=== PATIENT | female | born 1950 | race Hispanic/Latino ===

== ENCOUNTER 2016-08-01 15:45 | Inpatient (IN) | payer OTHER ==
[~2016-08-01] VITALS: Ht 165.1 cm; Wt 136.1 kg
[2016-08-01 15:54] VITALS: BP 147/55
[2016-08-01 16:24] LABS: PLATELET COUNT 313 K/uL (152-353)
[2016-08-01 16:30] LABS: POTASSIUM 4.5 mmol/L (3.6-5.2); SODIUM 134 mmol/L (136-145)
[2016-08-01 16:54] VITALS: BP 158/83
[2016-08-01 17:15] VITALS: BP 160/86; TEMP 98
[2016-08-01 18:00] VITALS: BP 156/83
[2016-08-01 20:00] VITALS: BP 143/96; TEMP 98.3
[2016-08-01 23:18] VITALS: BP 143/96; TEMP 98.3; Ht 165.1 cm; Wt 136.1 kg
[2016-08-02 00:09] VITALS: BP 142/62; TEMP 98
[2016-08-02] MEDS ORDERED: AMLO2.5T PO (01:17)
[2016-08-02] MEDS ORDERED: ASA LOW DOSE81 MG OR (01:18)
[2016-08-02] MEDS ORDERED: LIPITOR40 MG PO (01:20)
[2016-08-02] MEDS ORDERED: DOCU100C10 PO (01:21)
[2016-08-02] MEDS ORDERED: DONE5TAB PO (01:22)
[2016-08-02] MEDS ORDERED: DULO60CA2 OR (01:23)
[2016-08-02] MEDS ORDERED: INSUINJP SC (01:25)
[2016-08-02] MEDS ORDERED: TEMA15CA19 PO (01:26)
[2016-08-02] MEDS ORDERED: ONDA4TAB3 PO (01:27)
[2016-08-02] MEDS ORDERED: LEVO0.117 PO (01:29)
[2016-08-02] MEDS ORDERED: METO25TA2 (01:31)
[2016-08-02] MEDS ORDERED: POLY3350 PO (01:32)
[2016-08-02] MEDS ORDERED: METF500T PO (01:33)
[2016-08-02] MEDS ORDERED: PANT40TA PO (01:33)
[2016-08-02] MEDS ORDERED: OLAN2.5T2 PO (01:34)
[2016-08-02] MEDS ORDERED: COZAAR100 MG PO (01:35)
[2016-08-02 04:00] VITALS: BP 152/59; TEMP 98.3
[2016-08-02 08:20] VITALS: BP 156/74; TEMP 98.5
[2016-08-02 09:30] LABS: POTASSIUM 4.8 mmol/L (3.6-5.2)
[2016-08-02 09:35] LABS: PLATELET COUNT 324 K/uL (152-353)
[2016-08-02 11:44] VITALS: BP 149/62; TEMP 98.5
[2016-08-02 16:13] VITALS: BP 152/58; TEMP 98.3
[2016-08-02 20:00] VITALS: BP 135/64; TEMP 97.7
[2016-08-03 00:15] VITALS: BP 144/64; TEMP 98
[2016-08-03 04:16] VITALS: BP 154/84; TEMP 98
[2016-08-03 05:41] LABS: POTASSIUM 4.7 mmol/L (3.6-5.2)
[2016-08-03 06:51] LABS: PLATELET COUNT 317 K/uL (152-353)
[2016-08-03 08:00] VITALS: BP 187/81; TEMP 98
[2016-08-03 12:00] VITALS: BP 196/91; TEMP 97.9
[2016-08-03 16:00] VITALS: BP 153/78; TEMP 98.7
[2016-08-03 20:22] VITALS: BP 138/90; TEMP 97.9
[2016-08-04 00:01] VITALS: BP 152/70; TEMP 98
[2016-08-04 04:31] LABS: PLATELET COUNT 309 K/uL (152-353)
[2016-08-04 04:41] LABS: POTASSIUM 4.5 mmol/L (3.6-5.2)
[2016-08-04 08:00] VITALS: BP 159/76; TEMP 97.9
[2016-08-04 12:00] VITALS: BP 158/73; TEMP 98.2
[2016-08-04 16:00] VITALS: BP 147/78; TEMP 98.1
[2016-08-04 18:55] VITALS: BP 147/65; TEMP 98.8
[2016-08-05] VITALS: BP 175/83; TEMP 98.3
[2016-08-05 04:00] VITALS: BP 168/79; TEMP 98.3
[2016-08-05 04:32] LABS: PLATELET COUNT 314 K/uL (152-353)
[2016-08-05 04:54] LABS: POTASSIUM 4.4 mmol/L (3.6-5.2)
[2016-08-05 08:00] VITALS: BP 144/81; TEMP 98.3
[2016-08-05 11:30] VITALS: BP 190/76; TEMP 98.2
[2016-08-05 16:00] VITALS: BP 177/79; TEMP 97.7
[2016-08-05 20:23] VITALS: BP 158/65; TEMP 97.6
[2016-08-06 00:27] VITALS: BP 173/66; TEMP 98.4
[2016-08-06 04:00] VITALS: BP 163/67; TEMP 97.9
[2016-08-06 06:18] LABS: PLATELET COUNT 286 K/uL (152-353)
[2016-08-06 08:00] VITALS: BP 192/70; TEMP 98.3
[2016-08-06 12:00] VITALS: BP 174/67; TEMP 98.4
[2016-08-06 15:53] VITALS: BP 154/69; TEMP 98.3
[2016-08-06 21:09] VITALS: BP 151/81; TEMP 98.6
[2016-08-07 00:28] VITALS: BP 154/73; TEMP 98.1
[2016-08-07 04:00] VITALS: BP 174/77; TEMP 98.5
[2016-08-07 07:53] VITALS: BP 181/77; TEMP 98.1
== END 2016-08-07 10:23 | DRG 291 ==
LOC: ED 15:45 → MED/SURG 17:25
PROVIDERS: Internal Medicine; ADMIT Emergency Medicine
DX: I13.0 Hypertensive heart and chronic kidney disease with heart failure and stage 1 through stage 4 chronic kidney disease, or unspecified chronic kidney disease (principal); I50.23 Acute on chronic systolic (congestive) heart failure; N17.8 Other acute kidney failure; N18.4 Chronic kidney disease, stage 4 (severe); I48.91 Unspecified atrial fibrillation; E11.9 Type 2 diabetes mellitus without complications; Z79.4 Long term (current) use of insulin; D72.828 Other elevated white blood cell count; E66.01 Morbid (severe) obesity due to excess calories; R06.01 Orthopnea; I10 Essential (primary) hypertension; E83.41 Hypermagnesemia; R41.0 Disorientation, unspecified; L13.8 Other specified bullous disorders; D64.89 Other specified anemias; R60.0 Localized edema
CPT/HCPCS: 36415; 80053; 81000; 82550; 82948; 83735; 83880; 84443; 84484; 85027; 85610; 87070; 87077; 87088; 87185; 87186; 87205; 93005; 94760; 96372; 96374; 99284; J0360; J1630; J1940; J2060

== ENCOUNTER 2016-08-20 14:35 | Outpatient (CLI) | payer OTHER ==
[~2016-08-20 14:35] MED LIST: AMLO2.5T PO; ASA LOW DOSE81 MG OR; COZAAR100 MG PO; DOCU100C10 PO; DONE5TAB PO; DULO60CA2 OR; INSUINJP SC; LEVO0.117 PO; LIPITOR40 MG PO; METF500T PO; METO25TA2; OLAN2.5T2 PO; ONDA4TAB3 PO; PANT40TA PO; POLY3350 PO; TEMA15CA19 PO
[2016-08-20] MEDS ORDERED: FURO40TA93 PO (15:01)
== END 2016-08-20 14:37 | disposition short-term general hospital (02) ==
LOC: AMB 14:35
DX: R06.09 Other forms of dyspnea (principal); I50.9 Heart failure, unspecified; R60.0 Localized edema
CPT/HCPCS: A0425; A0427

== ENCOUNTER 2016-08-20 14:37 | Emergency (ER) | payer OTHER ==
[~2016-08-20] VITALS: Ht 160 cm; Wt 120.2 kg
[2016-08-20] MEDS ORDERED: FURO40TA93 PO (15:01)
[2016-08-20 15:51] LABS: PLATELET COUNT 346 K/uL (152-353)
[2016-08-20 16:01] LABS: POTASSIUM 3.4 mmol/L (3.6-5.2); SODIUM 139 mmol/L (136-145)
[2016-08-20 18:30] VITALS: BP 122/68; TEMP 98
== END 2016-08-20 18:35 | disposition home or self-care (01) ==
LOC: ED 14:37
PROVIDERS: Emergency Medicine
PROC: 0T9B70Z Drainage of Bladder with Drainage Device, Via Natural or Artificial Opening (ICD-10-PCS; principal; 2016-08-20)
DX: I50.9 Heart failure, unspecified (principal); M79.1 Myalgia; R60.9 Edema, unspecified; I48.91 Unspecified atrial fibrillation
CPT/HCPCS: 36415; 51702; 80053; 82150; 82550; 83880; 84484; 85027; 93005; 96374; 96375; 99284; J1940; J3490

== ENCOUNTER 2016-09-15 12:55 | Outpatient (CLI) | payer OTHER ==
[~2016-09-15 12:55] MED LIST changes: +FURO40TA93 PO
[2016-09-16] MEDS ORDERED: JANTOVEN7.5 MG OR (08:35)
[2016-09-16] MEDS ORDERED: COUMADIN6 MG PO (08:36)
[2016-09-16] MEDS ORDERED: FAMOTIDINE20 MG PO (08:37)
[2016-09-16] MEDS ORDERED: TENORETIC50 MG PO (08:38)
[2016-09-16] MEDS ORDERED: TRAM50TA PO (08:39)
[2016-09-16] MEDS ORDERED: LORA1TAB17 PO (08:40)
[2016-09-16] MEDS ORDERED: DOCU100C10 PO (08:41)
[2016-09-16] MEDS ORDERED: GLIM4TAB PO (08:42)
[2016-09-16] MEDS ORDERED: NOVOLOG100 MG/ML SC (08:44)
[2016-09-16] MEDS ORDERED: ALBUTEROL0.083 % IN (08:46)
== END 2016-09-15 12:59 | disposition short-term general hospital (02) ==
LOC: AMB 12:55
DX: M79.605 Pain in left leg (principal); M54.2 Cervicalgia; W01.0XXA Fall on same level from slipping, tripping and stumbling without subsequent striking against object, initial encounter; Y92.193 Bedroom in other specified residential institution as the place of occurrence of the external cause
CPT/HCPCS: A0425; A0429

== ENCOUNTER 2016-09-15 13:10 | Emergency (ER) | payer OTHER ==
[~2016-09-15] VITALS: Ht 160 cm; Wt 108.9 kg
[2016-09-15 13:14] VITALS: TEMP 98
[2016-09-15 17:15] VITALS: BP 124/60
[2016-09-16] MEDS ORDERED: JANTOVEN7.5 MG OR (08:35)
[2016-09-16] MEDS ORDERED: COUMADIN6 MG PO (08:36)
[2016-09-16] MEDS ORDERED: FAMOTIDINE20 MG PO (08:37)
[2016-09-16] MEDS ORDERED: TENORETIC50 MG PO (08:38)
[2016-09-16] MEDS ORDERED: TRAM50TA PO (08:39)
[2016-09-16] MEDS ORDERED: LORA1TAB17 PO (08:40)
[2016-09-16] MEDS ORDERED: DOCU100C10 PO (08:41)
[2016-09-16] MEDS ORDERED: GLIM4TAB PO (08:42)
[2016-09-16] MEDS ORDERED: NOVOLOG100 MG/ML SC (08:44)
[2016-09-16] MEDS ORDERED: ALBUTEROL0.083 % IN (08:46)
== END 2016-09-15 17:45 | disposition home or self-care (01) ==
LOC: ED 13:10
DX: S70.02XA Contusion of left hip, initial encounter (principal); S30.0XXA Contusion of lower back and pelvis, initial encounter; S30.1XXA Contusion of abdominal wall, initial encounter; M54.89 Other dorsalgia; R19.09 Other intra-abdominal and pelvic swelling, mass and lump; W05.0XXA Fall from non-moving wheelchair, initial encounter; Y92.098 Other place in other non-institutional residence as the place of occurrence of the external cause
CPT/HCPCS: 99283

== ENCOUNTER 2016-09-16 04:45 | Outpatient (CLI) | payer OTHER ==
[2016-09-16] MEDS ORDERED: JANTOVEN7.5 MG OR (08:35)
[2016-09-16] MEDS ORDERED: COUMADIN6 MG PO (08:36)
[2016-09-16] MEDS ORDERED: FAMOTIDINE20 MG PO (08:37)
[2016-09-16] MEDS ORDERED: TENORETIC50 MG PO (08:38)
[2016-09-16] MEDS ORDERED: TRAM50TA PO (08:39)
[2016-09-16] MEDS ORDERED: LORA1TAB17 PO (08:40)
[2016-09-16] MEDS ORDERED: DOCU100C10 PO (08:41)
[2016-09-16] MEDS ORDERED: GLIM4TAB PO (08:42)
[2016-09-16] MEDS ORDERED: NOVOLOG100 MG/ML SC (08:44)
[2016-09-16] MEDS ORDERED: ALBUTEROL0.083 % IN (08:46)
== END 2016-09-16 04:49 | disposition short-term general hospital (02) ==
LOC: AMB 04:45
DX: R52 Pain, unspecified (principal)
CPT/HCPCS: A0425; A0427

== ENCOUNTER 2016-09-16 04:49 | Inpatient (IN) | payer OTHER ==
[~2016-09-16] VITALS: Ht 167.6 cm; Wt 122.6 kg
[2016-09-16] VITALS (8 sets, daily range): BP systolic 124–178; BP diastolic 60–803; TEMP 97.6–99.1; Ht 167.6 cm; Wt 122.6 kg
[2016-09-16 06:41] LABS: POTASSIUM 2.9 mmol/L (3.6-5.2); SODIUM 134 mmol/L (136-145)
[2016-09-16 06:43] LABS: PLATELET COUNT 469 K/uL (152-353)
[2016-09-16] MEDS ORDERED: JANTOVEN7.5 MG OR (08:35)
[2016-09-16] MEDS ORDERED: COUMADIN6 MG PO (08:36)
[2016-09-16] MEDS ORDERED: FAMOTIDINE20 MG PO (08:37)
[2016-09-16] MEDS ORDERED: TENORETIC50 MG PO (08:38)
[2016-09-16] MEDS ORDERED: TRAM50TA PO (08:39)
[2016-09-16] MEDS ORDERED: LORA1TAB17 PO (08:40)
[2016-09-16] MEDS ORDERED: DOCU100C10 PO (08:41)
[2016-09-16] MEDS ORDERED: GLIM4TAB PO (08:42)
[2016-09-16] MEDS ORDERED: NOVOLOG100 MG/ML SC (08:44)
[2016-09-16] MEDS ORDERED: ALBUTEROL0.083 % IN (08:46)
[2016-09-16 16:51] LABS: POTASSIUM 3.3 mmol/L (3.6-5.2)
[2016-09-17 04:00] VITALS: BP 149/90; TEMP 98.9
[2016-09-17 08:00] VITALS: BP 140/91; TEMP 98
[2016-09-17 09:05] LABS: POTASSIUM 3.5 mmol/L (3.6-5.2)
[2016-09-17 10:10] LABS: PLATELET COUNT 434 K/uL (152-353)
[2016-09-17 12:00] VITALS: BP 138/88; TEMP 97.9
[2016-09-17 16:00] VITALS: BP 136/86; TEMP 97.6
[2016-09-17 20:00] VITALS: BP 147/92; TEMP 98
[2016-09-18] VITALS (17 sets, daily range): BP systolic 131–164; BP diastolic 78–103; TEMP 97.8–98.8
[2016-09-18 04:33] LABS: PLATELET COUNT 440 K/uL (152-353)
[2016-09-18 05:07] LABS: POTASSIUM 3.6 mmol/L (3.6-5.2)
[2016-09-19] VITALS (27 sets, daily range): BP systolic 118–165; BP diastolic 59–162; TEMP 98.9–100.8
[2016-09-19 06:44] LABS: PLATELET COUNT 414 K/uL (152-353)
[2016-09-19 06:56] LABS: POTASSIUM 3.8 mmol/L (3.6-5.2)
[2016-09-20] VITALS (19 sets, daily range): BP systolic 102–163; BP diastolic 61–98; TEMP 98.5–100.5
[2016-09-20 06:38] LABS: PLATELET COUNT 380 K/uL (152-353)
[2016-09-20 07:08] LABS: POTASSIUM 3.5 mmol/L (3.6-5.2)
[2016-09-20 19:09] LABS: PARTIAL THROMBOPLASTIN TIME 25.4 SECONDS (24.5-33.6)
[2016-09-21] VITALS (20 sets, daily range): BP systolic 110–146; BP diastolic 56–92; TEMP 97.6–101
[2016-09-21 06:07] LABS: POTASSIUM 3.2 mmol/L (3.6-5.2)
[2016-09-21 06:13] LABS: PARTIAL THROMBOPLASTIN TIME 27.2 SECONDS (24.5-33.6)
[2016-09-21 06:43] LABS: PLATELET COUNT 423 K/uL (152-353)
[2016-09-21 20:37] LABS: POTASSIUM 3.2 mmol/L (3.6-5.2)
[2016-09-22] VITALS (17 sets, daily range): BP systolic 40–155; BP diastolic 24–104; TEMP 98–106.5
[2016-09-22 06:33] LABS: POTASSIUM 3.6 mmol/L (3.6-5.2)
[2016-09-22 06:47] LABS: PLATELET COUNT 426 K/uL (152-353)
== END 2016-09-22 17:05 | disposition expired | DRG 853 ==
LOC: ED 04:49 → MED/SURG 07:50 → ED 07:50 → MED/SURG 08:55 → ICU 09-18 11:42
PROVIDERS: Emergency Medicine; Internal Medicine; Specialist; ADMIT Family Medicine
PROC: 30233N1 Transfusion of Nonautologous Red Blood Cells into Peripheral Vein, Percutaneous Approach (ICD-10-PCS; 2016-09-16)
PROC: 30233N1 Transfusion of Nonautologous Red Blood Cells into Peripheral Vein, Percutaneous Approach (ICD-10-PCS; 2016-09-19)
PROC: 0JBQ0ZZ Excision of Right Foot Subcutaneous Tissue and Fascia, Open Approach (ICD-10-PCS; principal; 2016-09-21)
PROC: 02HV33Z Insertion of Infusion Device into Superior Vena Cava, Percutaneous Approach (ICD-10-PCS; 2016-09-21)
DX: R65.20 Severe sepsis without septic shock (principal); L89.613 Pressure ulcer of right heel, stage 3; N39.0 Urinary tract infection, site not specified; N18.4 Chronic kidney disease, stage 4 (severe); J90 Pleural effusion, not elsewhere classified; D64.89 Other specified anemias; E87.6 Hypokalemia; E83.42 Hypomagnesemia; I12.9 Hypertensive chronic kidney disease with stage 1 through stage 4 chronic kidney disease, or unspecified chronic kidney disease; D72.828 Other elevated white blood cell count; R00.0 Tachycardia, unspecified; I48.91 Unspecified atrial fibrillation; R31.9 Hematuria, unspecified; E88.09 Other disorders of plasma-protein metabolism, not elsewhere classified; R09.89 Other specified symptoms and signs involving the circulatory and respiratory systems; S70.02XA Contusion of left hip, initial encounter; S30.0XXA Contusion of lower back and pelvis, initial encounter; S30.1XXA Contusion of abdominal wall, initial encounter; M54.89 Other dorsalgia; R19.09 Other intra-abdominal and pelvic swelling, mass and lump; W05.0XXA Fall from non-moving wheelchair, initial encounter; Y92.098 Other place in other non-institutional residence as the place of occurrence of the external cause
CPT/HCPCS: 31500; 36415; 36430; 36591; 36600; 51702; 80048; 80053; 80202; 81000; 82550; 82553; 82570; 82805; 82948; 82962; 83735; 83880; 84100; 84300; 84443; 84484; 84540; 85007; 85027; 85379; 85610; 85730; 86140; 86850; 86900; 86901; 86922; 87040; 87070; 87077; 87088; 87185; 87186; 87205; 90471; 92950; 93005; 94760; 96365; 96372; 99283; 99284; J0171; J0696; J1644; J1885; J1940; J2001; J2060; J2175; J2250; J2270; J2405; J2704; J3411; J3475; J3490; P9016